=== PATIENT | female | born 1985 | race Caucasian/White ===

== ENCOUNTER 2016-09-20 09:33 | Outpatient (CLI) ==
--- NOTE | 2016-09-20 10:19 | DI ---
EXAM: Right calcaneus two views HISTORY: Abscess, redness and swelling. FINDINGS: Bone and joint structures appear normal. There is soft tissue swelling of the heel which may be related to cellulitis. There is no radiographic evidence of well-defined fluid collection, radiopaque soft tissue foreign body or soft tissue gas collection. IMPRESSION: Soft tissue swelling without evidence of radiopaque foreign body, gas collection or defined fluid co llection radiographically. Bones appear normal.
== END 2016-09-20 09:34 | disposition home or self-care (01) ==
LOC: RAD 09:33
PROVIDERS: ATTEND Family Medicine
DX: L02.91 Cutaneous abscess, unspecified (principal)